=== PATIENT | male | born 1950 | race Caucasian/White ===

== ENCOUNTER → 2019-11-06 | Outpatient (CLI) | payer MEDICARE, OTHER ==
--- NOTE | 2019-11-06 12:58 | Diagnostic Imaging Report ---
Abdominal Ultrasound Clinical Diagnosis: Alcoholic cirrhosis Comparison: None Technique: Multiple transaxial and longitudinal images were obtained through the abdomen with real time ultrasonography. A low-frequency curvilinear transducer was utilized. Multiple images were submitted for interpretation. Report: Liver: The liver measures 15 cm in the right midaxillary line. There are no focal masses or abnormal cysts. The echogenicity is slightly increased and heterogeneous. The liver has a nodular contour consistent with the clinical history of cirrhosis. Spleen: The spleen measures 11.5 cm in the left mid axillary line. There are no focal masses or cysts. Gallbladder: The transverse diameter is within normal limits cm. The wall measures 3 mm. There is a shadowing gallstone visualized. There is no sludge visualized. Sonographic Baker's sign is negative. Biliary tree: There is no evidence of intra or extra hepatic biliary ductal dilatation. The common bile duct measures 3 mm. Portal vein: The portal vein measures 11 mm. There is hepatopedal flow. Pancreas: The pancreatic parenchyma is not well seen secondary to overlying bowel gas. Ascites: Absent Pleural Effusion: Absent Right kidney: The right kidney measures 11.8 x 5.1 x 4.3 cm. There is no evidence of hydronephrosis, mass, cyst. Left kidney: The left kidney measures 11.4 x 6.1 x 3.6 cm. There is no evidence of hydronephrosis or a mass. There is a midpole are simple cyst measuring 3 x 3 x 2.6 cm. IVC/Aorta: Partially seen segments demonstrate no abnormality. Impression: Cirrhotic liver. No hepatic mass. Gallstone. No signs of cholecystitis. Signed by: Rickey Canseco MD on 11/06/2019 12:55 PM
== END ==
LOC: US 10:59
PROVIDERS: ATTEND Surgery
DX: K70.31 Alcoholic cirrhosis of liver with ascites (principal)
CPT/HCPCS: 76700